=== PATIENT | female | born 1970 | race Caucasian/White ===

== ENCOUNTER 2024-04-18 12:43 | Outpatient (AMB) | payer OTHER, SELFPAY ==
--- NOTE | 2024-04-18 12:46 | A.OFFVIS_ITS ---
Vital Signs 04/18/24 12:50 Height 5 ft 7 in Weight 304 lb 3.806 oz BMI 47.6 BP 106/74 Blood Pressure Location Rt brachial Position Sitting Pulse 72 Pulse Source Pulse Oximeter Intake Visit Reasons: Obesity management Intake Note: NEW Patient presents today to establish treatment Obesity Management: Development Technician Required: No Accompanied by: Self / Same As Patient Allergies erythromycin base Adverse Reaction (Unknown, Verified 04/18/24 12:49) Vomiting sulfamethoxazole [From Bactrim] Adverse Reaction (Unknown, Verified 04/18/24 12:49) skin peeling trimethoprim [From Bactrim] Adverse Reaction (Unknown, Verified 04/18/24 12:49) skin peeling Medication List - Last Reconciled 04/18/24 by Eleazar Downey MD cholecalciferol (vitamin D3) 50 mcg PO DAILY diclofenac sodium mg PO fexofenadine (Josiane Allergy) 180 mg PO DAILY levothyroxine 200 mcg PO DAILY omeprazole 40 mg PO DAILY HPI Comments Details: This is a 53-year-old female referred to endocrinology for evaluation of obesity . Patient states weight gain of happened gradually lbs had occurred over many yrs Lost 30 lbs during Covid . Patient has tried diets of weight watchers and fad diets . Patient has seen a rattle leak and squeak repairer yrs ago . Saw Dr. Ascencio Patient has not tried weight loss medications of . Her primary care provider prescribed Wegovy but was denied . There is a history of hypothyroidism the patient is currently being treated by her primary care provider with levothyroxine 200 mcg. TSH was checked in January 2024 and was within normal limits. There were no symptoms of Boris syndrome., Granfather and uncle had Type 2 DM . Snores at night but does not have a known history of sleep apnea No history of pancreatitis or family history of medullary cancer of the thyroid or MEN 2 [facility] Medical History (Updated 04/18/24 @ 13:15 by BEATRIZ Mckeon) Rosacea Low serum vitamin D History of herniated intervertebral disc Allergic rhinitis Hypothyroid Mixed hyperlipidemia Loud snoring Restless leg Hepatic steatosis Obesity Surgical History (Updated 04/13/24 @ 11:46 by BEATRIZ Scruggs) Hx of section History of surgery History of partial hysterectomy History of colonoscopy Family History (Updated 04/13/24 @ 11:48 by BEATRIZ Scruggs) Mother History of hypertension Father Alcoholism Lung cancer Social History (Updated 04/13/24 @ 11:47 by BEATRIZ Scruggs) Alcohol intake: current Alcohol intake frequency: a few times a month Patient Tobacco Use Status: Never used Tobacco Physical Exam Vital Signs: Last Vital Signs Pulse 72 04/18/24 12:50 BP 106/74 04/18/24 12:50 BMI result Body Mass Index 47.6 Const Other: There was no cushingoid appearance. Thyroid gland is normal size weighs about 15 g. There are no thyroid nodules palpated Assessment & Plan Assessment & Plan (1) Obesity: Code(s): E66.9 - Obesity, unspecified Category: Medical Plan: This 53-year-old white female with a history of obesity. There were no clear secondary causes. Appears to be clinically and biochemically euthyroid. Plan is to send the patient to rattle leak and squeak repairer. We will talk about potentially initiating G LP 1 weight loss medication including the use of Wegovy or Zepbound if this is covered by patient's insurance. After careful discussion with the patient we decided to start Zepbound 2.5 mg Q weekly. Went over side effects of Zepbound including but not limited to nausea, vomiting and rare risk of pancreatitis Orders: Referrals Nutrition/Dietitian Referral E66.9 - Obesity, unspecified Medications: New tirzepatide (weight loss) (Zepbound) for 4 weeks 2.5 mg (0.5 mL) subcut QWEEK 2 mL 4RF Coding Level of Care Code New Pt Level 4 (42587) Diagnoses Obesity E66.9
[2024-04-18 12:50] VITALS: BP 106/74; PULSE 72; BMI 47.6
== END 2024-04-18 13:47 | disposition home or self-care (01) ==
PROVIDERS: PCP Internal Medicine; Visit Provider Internal Medicine Endocrinology, Diabetes & Metabolism
DX: E66.9 Obesity, unspecified (principal)
CPT/HCPCS: 99204

== ENCOUNTER → 2024-04-18 12:43 | Outpatient (BNVA) | payer OTHER, SELFPAY | PROVIDERS: PCP Internal Medicine; Visit Provider Internal Medicine Endocrinology, Diabetes & Metabolism ==

== ENCOUNTER 2024-05-17 13:52 | Outpatient (AMB) | payer OTHER, SELFPAY ==
--- NOTE | 2024-05-17 14:02 | A.OFFVIS_ITS ---
VS Expanded 05/17/24 14:14 05/24/24 20:55 Height 5 ft 7 in 5 ft 7 in Weight 296 lb 15.402 oz 297 lb BMI 46.5 46.5 Intake Visit Reasons: Obesity Allergies erythromycin base Adverse Reaction (Unknown, Verified 04/18/24 12:49) Vomiting sulfamethoxazole [From Bactrim] Adverse Reaction (Unknown, Verified 04/18/24 12:49) skin peeling trimethoprim [From Bactrim] Adverse Reaction (Unknown, Verified 04/18/24 12:49) skin peeling Nutrition Presentation Details: Pt presents for MNT obesity Food frequency fruits: 0-1/d vex/wk starches> 25 serving/d dairy: 3+serving/d prot: fish- not including beverages: water, milk,soups, juices physical activity: ADL etoh/smoking:denies BS Monitoring Most Recent Diabetes Results: No Data to Display ERY-Puurqmc-Nv.Jeor Equation Height: 5 ft 7 in Weight: 297 lb Resting Metabolic Rate: 1982.77 Calculated Activity Level: Sedentary Calories Needed to Maintain Weight: 2379.32 Diagnosis Nutrition problem #1: food nutri know defi As related to (etiology) #1: diagnosis As evidenced by (sign/symptom) #1: food recall and high BMI (46.5 on 05/17/24) Monitoring/Goals Nutrition problem monitoring: level of knowledge/skill, total CHO intake and weight Nutrition goal/outcome: wt loss 5lbs in 2 months [facility] Medical History Rosacea Low serum vitamin D History of herniated intervertebral disc Allergic rhinitis Hypothyroid Mixed hyperlipidemia Loud snoring Restless leg Hepatic steatosis Obesity Surgical History Hx of section History of surgery History of partial hysterectomy History of colonoscopy Family History Mother History of hypertension Father Alcoholism Lung cancer Social History Alcohol intake: current Alcohol intake frequency: a few times a month Patient Tobacco Use Status: Never used Tobacco Assessment & Plan Assessment & Plan (1) Obesity: Code(s): E66.9 - Obesity, unspecified Category: Medical Plan: Wt: 135 Kg ( 05/24 ) Est kcal needs as per MSJ: 2400 (40% carb, 30% protein/fat) Est fluid needs as per 25-30 ml/d: 4100 Est prot per day as per 1 g/kg bw: 135 Recommend fiber intake : 8-10 g per day and gradually increase to 25-28 g per day for women and 35-38 g for men or as tolerated Recommend sodium intake per day : l less than 2000 mg Educated patient on: ( R = reviewed V = verbalizes understanding N/R = needs review N/A = not applicable * Food sources of carbohydrate, adequate serving sizes and its role in various health conditions: R V N/R * Differences between complex carbohydrates a simple carbohydrates, role of fiber in diet: R * Lean protein sources of foods: R * Differences between types of fats and role in diet (mono on saturated fat fatty acids, saturated fatty acids, trans fats): R V N/R * Food sources of sodium in salt and healthy modifications for heart health in kidney health: R V R/V * Vitamins and minerals: R V N/R * Healthy plate method concept: R V N/R * Physical activity: Benefits a precaution: R V N/R * Medications: Discontinued tirzepatide (weight loss) (Zepbound) for 4 weeks Discontinued Reason: Doctor's Order 2.5 mg (0.5 mL) subcut QWEEK 2 mL 4RF Patient Instructions: Practice mindful eating Choose fiber rich foods, nutrient dense foods (reducing simple carbs) Keep hydrated by having water with meals/snacks Coding Level of Care Code Nutr Indiv Intake (61574) Diagnoses Obesity E66.9 Time Spent (min) 30
[2024-05-17 14:14] VITALS: BMI 46.5
[2024-05-24 20:55] VITALS: BMI 46.5
== END 2024-05-17 14:43 | disposition home or self-care (01) ==
PROVIDERS: PCP Internal Medicine; Visit Provider Dietitian, Registered
DX: E66.9 Obesity, unspecified (principal)

== ENCOUNTER → 2024-05-17 13:52 | Outpatient (BNVA) | payer OTHER, SELFPAY | PROVIDERS: PCP Internal Medicine; Visit Provider Dietitian, Registered | DX: E66.9 Obesity, unspecified (principal); Z68.42 Body mass index [BMI] 45.0-49.9, adult; Z71.3 Dietary counseling and surveillance | CPT/HCPCS: 97802 ==

== ENCOUNTER → 2024-05-31 15:20 | Outpatient (BNVA) | payer OTHER, SELFPAY | PROVIDERS: PCP Internal Medicine | DX: Z76.89 Persons encountering health services in other specified circumstances (principal) ==

== ENCOUNTER 2024-07-19 13:52 | Outpatient (AMB) | payer OTHER, SELFPAY ==
--- NOTE | 2024-07-19 13:57 | A.OFFVIS_ITS ---
Vital Signs 07/19/24 13:59 Height 5 ft 7 in Weight 290 lb 12.635 oz BMI 45.5 BP 112/76 Blood Pressure Location Rt brachial Position Sitting Pulse 84 Pulse Source Pulse Oximeter Pulse Oximetry (%) 98 Oxygen Delivery Method Room Air Intake Visit Reasons: obesity Intake Note: Patient present today for Obesity follow up. Bench Precision Assembler Required: No Accompanied by: Self / Same As Patient Allergies erythromycin base Adverse Reaction (Unknown, Verified 07/19/24 14:00) Vomiting sulfamethoxazole [From Bactrim] Adverse Reaction (Unknown, Verified 07/19/24 14:00) skin peeling trimethoprim [From Bactrim] Adverse Reaction (Unknown, Verified 07/19/24 14:00) skin peeling Medication List - Last Reconciled 07/19/24 by Eleazar Downey MD cholecalciferol (vitamin D3) 50 mcg PO DAILY diclofenac sodium mg PO fexofenadine (Josiane Allergy) 180 mg PO DAILY levothyroxine 200 mcg PO DAILY omeprazole 40 mg PO DAILY tirzepatide (weight loss) (Zepbound) 5 mg (0.5 mL) subcut QWEEK HPI Comments Details: This is a 53-year-old female referred to endocrinology for evaluation of obesity . Patient states weight gain of happened gradually lbs had occurred over many yrs Lost 30 lbs during Covid . Patient has tried diets of weight watchers and fad diets . Patient has seen a marksmanship instructor yrs ago . Saw Dr. Ascencio Patient has not tried weight loss medications of . Her primary care provider prescribed Wegovy but was denied . There is a history of hypothyroidism the patient is currently being treated by her primary care provider with levothyroxine 200 mcg. TSH was checked in January 2024 and was within normal limits. There were no symptoms of Fithian syndrome., Granfather and uncle had Type 2 DM . Snores at night but does not have a known history of sleep apnea No history of pancreatitis or family history of medullary cancer of the thyroid or MEN 2 Currently on Zepbound 5 mg Q weekly The patient is a 54-year-old female presenting with a follow-up for obesity management. Her treatment plan includes semaglutide (Zepbound), and she has been on 5 mg since May 31. Her initial weight at the first visit was 304 pounds, and it has reduced to 290 pounds. The patient indicates she has been tolerating the medication well but has noticed the effectiveness in appetite suppression waning in the past two weeks. Despite this, she reports continued weight loss. The patient expressed an interest in increasing her semaglutide dosage to 7.5 mg to enhance the medication?s efficacy. She experiences mild, intermittent nausea but no other significant side effects such as sulfur burps. Constipation is a noted side effect she is managing. The patient is actively engaging in a comprehensive platform for weight management, including consultations with an shoe folder, marksmanship instructor, nurse practitioner Mohini Zavala, and exercise routines. Specifics regarding her exercise regimen were not detailed. [facility] Medical History Rosacea Low serum vitamin D History of herniated intervertebral disc Allergic rhinitis Hypothyroid Mixed hyperlipidemia Loud snoring Restless leg Hepatic steatosis Obesity Surgical History Hx of section History of surgery History of partial hysterectomy History of colonoscopy Family History Mother History of hypertension Father Alcoholism Lung cancer Social History Alcohol intake: current Alcohol intake frequency: a few times a month Patient Tobacco Use Status: Never used Tobacco Physical Exam Vital Signs: BMI result Body Mass Index 45.5 Assessment & Plan Assessment & Plan (1) Obesity: Code(s): E66.9 - Obesity, unspecified Category: Medical Plan: This 53-year-old white female with a history of obesity. There were no clear secondary causes. Appears to be clinically and biochemically euthyroid. 1. Obesity The patient has lost weight on semaglutide 5 mg but reports increased appetite recently. We plan to increase the dosage to 7.5 mg, subject to insurance approval, to enhance appetite management and weight reduction. 2. Constipation The patient is experiencing manageable constipation from medication. Ongoing monitoring and management strategies will be enough unless symptoms worsen. During the consultation, we discussed the management of obesity with Zepbound , focusing on increasing the dose from 5 mg to 7.5 mg following a noted increase in appetite despite weight loss. The patient acknowledged the necessity to secure insurance approval for the new dosage. She was informed about the possibility of improved weight control at the higher dose but also advised of potential side effects, such as exacerbation of constipation and nausea. Constipation management strategies were also reviewed. Follow-up with her nurse practitioner in four weeks is encouraged to evaluate the effectiveness and tolerability of the increased dose, with additional weight management strategies to be explored if needed. - Continue taking your current medications as prescribed. - If insurance permits, start the increased dose of Zepbound as discussed. - Monitor for any side effects like increased nausea or constipation. - Maintain your exercise routine and dietary management as detailed in your comprehensive obesity program. - Attend all scheduled follow-up appointments with healthcare providers. - Report any concerning symptoms or side effects promptly. The patient had an opportunity to ask questions regarding treatment plan. The patient expressed understanding and agreement with the above treatment plan. Patient was informed and verbally consented to the use of an ambient scribe for clinic note documentation during this visit. Medications: New tirzepatide (weight loss) (Zepbound) 7.5 mg (0.5 mL) subcut QWEEK 2 mL 4RF Discontinued tirzepatide (weight loss) (Zepbound) Discontinued Reason: Doctor's Order 5 mg (0.5 mL) subcut QWEEK 2 mL 5RF Coding Level of Care Code Est Pt Level 3 (86729) Diagnoses Obesity E66.9
[2024-07-19 13:59] VITALS: BP 112/76; PULSE 84; O2SAT 98; BMI 45.5
== END 2024-07-19 14:14 | disposition home or self-care (01) ==
LOC: HO.ENCR 13:53
PROVIDERS: PCP Internal Medicine; Visit Provider Internal Medicine Endocrinology, Diabetes & Metabolism
DX: E66.9 Obesity, unspecified (principal)
CPT/HCPCS: 99213

== ENCOUNTER → 2024-07-19 13:52 | Outpatient (BNVA) | payer OTHER, SELFPAY | PROVIDERS: PCP Internal Medicine; Visit Provider Internal Medicine Endocrinology, Diabetes & Metabolism ==

== ENCOUNTER 2024-07-20 13:52 | Outpatient (AMB) | payer OTHER, SELFPAY ==
--- NOTE | 2024-07-20 14:01 | MHC.AMNUTRGE ---
VS Expanded 07/20/24 14:02 07/20/24 14:29 Height 5 ft 7 in 5 ft 7 in Weight 290 lb 11.5 oz 291 lb BMI 45.5 45.6 Intake Visit Reasons: Obesity Allergies erythromycin base Adverse Reaction (Unknown, Verified 07/19/24 14:00) Vomiting sulfamethoxazole [From Bactrim] Adverse Reaction (Unknown, Verified 07/19/24 14:00) skin peeling trimethoprim [From Bactrim] Adverse Reaction (Unknown, Verified 07/19/24 14:00) skin peeling Nutrition Presentation Details: Pt presents for MNT for obesity. Pt reports having 3 meals/day , counting calories, and trying to reduce calories to 1500 per day, 70 g of protein/day Reports having symptoms of constipation and is trying Metamucil once every other day and has been useful Reports incorporating physical activity , walking 1-2 miles by doing video walk away the pounds , reports often feeling too tired after the walk reports, lately having restless sleep fluids : 40 oz/day protein : 70 g/day from foods, not supplements fruits 0-1/d beans - not including fish 2 x/wk BS Monitoring Most Recent Diabetes Results: No Data to Display HOV-Bvbjide-Ba.Jeor Equation Height: 5 ft 7 in Weight: 291 lb Resting Metabolic Rate: 1955.58 Calculated Activity Level: Sedentary Calories Needed to Maintain Weight: 2346.70 [facility] Medical History Rosacea Low serum vitamin D History of herniated intervertebral disc Allergic rhinitis Hypothyroid Mixed hyperlipidemia Loud snoring Restless leg Hepatic steatosis Obesity Surgical History Hx of section History of surgery History of partial hysterectomy History of colonoscopy Family History Mother History of hypertension Father Alcoholism Lung cancer Social History Alcohol intake: current Alcohol intake frequency: a few times a month Patient Tobacco Use Status: Never used Tobacco Assessment & Plan Assessment & Plan (1) Obesity: Code(s): E66.9 - Obesity, unspecified Category: Medical Plan: Wt: 135 Kg ( 05/24 ), 132 kg (07/22) Est kcal needs as per MSJ: 2300- 500 eli = 1800/1900 (40% carb, 30% protein/fat) Est fluid needs as per 25-30 ml/d: 4000 (16 cups fluids/d) Est prot per day as per 1 g/kg bw: 130 Recommend fiber intake : 8-10 g per day and gradually increase to 25-28 g per day for women and 35-38 g for men or as tolerated Recommend sodium intake per day : l less than 2000 mg Educated patient on: ( R = reviewed V = verbalizes understanding N/R = needs review N/A = not applicable Food sources of carbohydrate, adequate serving sizes and its role in various health conditions: R V N/R Differences between complex carbohydrates a simple carbohydrates, role of fiber in diet: R Lean protein sources of foods: R Differences between types of fats and role in diet (mono on saturated fat fatty acids, saturated fatty acids, trans fats): R V N/R Food sources of sodium in salt and healthy modifications for heart health in kidney health: R V R/V Vitamins and minerals: R V N/R Healthy plate method concept: R V N/R Physical activity/hydration/nutrition : Benefits a precaution: R Patient Instructions: Do not over restrict calories, work on gradual diet modifications, Recommend consuming 3487-5797 calories per day, including a variety of food including high fiber foods (fruits/legumes/oats, protein from milk, beef, beans), keep hydrated (remember that fruits, veg, milk also have water in them) Continue with walking exercises in a steady/consistent manner Next topic : fats/hidden fats Coding Level of Care Code Nutr Indiv Subseq (83943) Diagnoses Obesity E66.9 Time Spent (min) 30
[2024-07-20 14:02] VITALS: BMI 45.5
[2024-07-20 14:29] VITALS: BMI 45.6
== END 2024-07-20 14:43 | disposition home or self-care (01) ==
LOC: HO.ENCR 13:53
PROVIDERS: PCP Internal Medicine; Visit Provider Dietitian, Registered
DX: E66.9 Obesity, unspecified (principal)

== ENCOUNTER → 2024-07-20 13:52 | Outpatient (BNVA) | payer OTHER, SELFPAY | PROVIDERS: PCP Internal Medicine; Visit Provider Dietitian, Registered | DX: E66.9 Obesity, unspecified (principal); Z68.42 Body mass index [BMI] 45.0-49.9, adult; Z71.3 Dietary counseling and surveillance | CPT/HCPCS: 97803 ==

== ENCOUNTER 2024-08-16 15:45 | Outpatient (AMB) | payer OTHER, SELFPAY ==
[2024-08-16 15:58] VITALS: BP 106/70; PULSE 88; O2SAT 98; BMI 44.5
--- NOTE | 2024-08-16 15:58 | A.OFFVIS_ITS ---
Vital Signs 08/16/24 15:58 Height 5 ft 7 in Weight 284 lb 6.341 oz BMI 44.5 BP 106/70 Blood Pressure Location Rt brachial Position Sitting Pulse 88 Pulse Source Pulse Oximeter Pulse Oximetry (%) 98 Oxygen Delivery Method Room Air Intake Visit Reasons: Obesity Intake Note: Patient present today for Obesity follow up. Screen Tender Helper Required: No Accompanied by: Self / Same As Patient Allergies erythromycin base Adverse Reaction (Unknown, Verified 08/16/24 15:59) Vomiting sulfamethoxazole [From Bactrim] Adverse Reaction (Unknown, Verified 08/16/24 15:59) skin peeling trimethoprim [From Bactrim] Adverse Reaction (Unknown, Verified 08/16/24 15:59) skin peeling Medication List - Last Reconciled 08/16/24 by Eleazar Downey MD cholecalciferol (vitamin D3) 50 mcg PO DAILY diclofenac sodium mg PO fexofenadine (Josiane Allergy) 180 mg PO DAILY levothyroxine 200 mcg PO DAILY omeprazole 40 mg PO DAILY tirzepatide (weight loss) (Zepbound) 7.5 mg (0.5 mL) subcut QWEEK HPI Comments Details: This is a 54-year-old female referred to endocrinology for evaluation of obesity . Patient states weight gain of happened gradually lbs had occurred over many yrs Lost 30 lbs during Covid . Patient has tried diets of weight watchers and fad diets . Patient has seen a decorating machine operator yrs ago . Saw Dr. Ascencio Patient has not tried weight loss medications of . Her primary care provider prescribed Wegovy but was denied . There is a history of hypothyroidism the patient is currently being treated by her primary care provider with levothyroxine 200 mcg. TSH was checked in January 2024 and was within normal limits. There were no symptoms of Ambler syndrome., Granfather and uncle had Type 2 DM . Snores at night but does not have a known history of sleep apnea No history of pancreatitis or family history of medullary cancer of the thyroid or MEN 2 Currently on Zepbound 7.5 mg Q weekly The patient is a 54-year-old female presenting with concerns related to weight management and the effectiveness of current medications. She is currently on a 7.5 dose of weight loss medication, which has resulted in a 6 to 7-pound weight loss since last and reports no significant side effects except for constipation. The patient manages constipation with beta fiber, MiraLAX, and Mag07. In the context of her hypothyroidism, managed with levothyroxine, she wonders if her recent weight loss might require an adjustment in her thyroid medication. This aspect of her care is usually managed by her primary care provider. She expresses overall satisfaction with her current strategy but notes the possible need for future dosage adjustments based on her progress. The patient is actively engaging in a comprehensive platform for weight management, including consultations with an bobbin hauler, decorating machine operator, nurse practitioner Mohini Zavala, and exercise routines. Specifics regarding her exercise regimen were not detailed. [facility] Medical History Rosacea Low serum vitamin D History of herniated intervertebral disc Allergic rhinitis Hypothyroid Mixed hyperlipidemia Loud snoring Restless leg Hepatic steatosis Obesity Surgical History Hx of section History of surgery History of partial hysterectomy History of colonoscopy Family History Mother History of hypertension Father Alcoholism Lung cancer Social History Alcohol intake: current Alcohol intake frequency: a few times a month Patient Tobacco Use Status: Never used Tobacco Physical Exam Vital Signs: Last Vital Signs Pulse 88 08/16/24 15:58 BP 106/70 08/16/24 15:58 Pulse Ox 98 08/16/24 15:58 Oxygen Delivery Method Room Air 08/16/24 15:58 BMI result Body Mass Index 44.5 Assessment & Plan Assessment & Plan (1) Obesity: Code(s): E66.9 - Obesity, unspecified Category: Medical Plan: This 54-year-old white female with a history of obesity. There were no clear secondary causes. Appears to be clinically and biochemically euthyroid. - 1. Constipation associated with weight management medication Current management with fiber supplements and Mag07 to be continued with monitoring of symptoms. 2. Hypothyroidism Levothyroxine dosage should be re-evaluated during weight loss progress by PCP. 3. Obesity Current 7.5 mg dose of weight management medication is effective; continue monitoring weight and dietary adherence with decorating machine operator guidance. The patient had an opportunity to ask questions regarding treatment plan. The patient expressed understanding and agreement with the above treatment plan. Patient was informed and verbally consented to the use of an ambient scribe for clinic note documentation during this visit. The patient had an opportunity to ask questions regarding treatment plan. The patient expressed understanding and agreement with the above treatment plan. Patient was informed and verbally consented to the use of an ambient scribe for clinic note documentation during this visit. Coding Level of Care Code Est Pt Level 3 (09173) Diagnoses Obesity E66.9
== END 2024-08-16 16:12 | disposition home or self-care (01) ==
LOC: HO.ENCR 15:46
PROVIDERS: PCP Internal Medicine; Visit Provider Internal Medicine Endocrinology, Diabetes & Metabolism
DX: E66.9 Obesity, unspecified (principal)
CPT/HCPCS: 99213

== ENCOUNTER 2024-09-21 14:22 | Outpatient (AMB) | payer OTHER, SELFPAY ==
[2024-09-21 14:43] VITALS: BMI 43.2
--- NOTE | 2024-09-21 14:43 | A.OFFVIS_ITS ---
VS Expanded 09/21/24 14:43 10/04/24 20:26 Height 5 ft 7 in 5 ft 7 in Weight 275 lb 12.772 oz 276 lb BMI 43.2 43.2 Intake Visit Reasons: obesity Allergies erythromycin base Adverse Reaction (Unknown, Verified 08/16/24 15:59) Vomiting sulfamethoxazole (From Bactrim) Adverse Reaction (Unknown, Verified 08/16/24 15:59) skin peeling trimethoprim (From Bactrim) Adverse Reaction (Unknown, Verified 08/16/24 15:59) skin peeling Nutrition Presentation Details: Pt presents for MNT for obesity Pt reports working on eating slowly working on having 3 small meals per day and choosing fiber rich foods as snacks fluids: water, tea, low sugar beverages, 64 +/- 16 oz of fluids/d food frequency fruits: 0-1/d ve/d dairy : 1-2/d fish 0-1/wk physical activity: walking tape 30 minutes 3 x/wk OTE-Nkrndsv-Qh.Jeor Equation Height: 5 ft 7 in Weight: 276 lb Resting Metabolic Rate: 1887.61 Calculated Activity Level: Sedentary Calories Needed to Maintain Weight: 2265.13 PFSH Medical History Rosacea Low serum vitamin D History of herniated intervertebral disc Allergic rhinitis Hypothyroid Mixed hyperlipidemia Loud snoring Restless leg Hepatic steatosis Obesity Surgical History Hx of section History of surgery History of partial hysterectomy History of colonoscopy Family History Mother History of hypertension Father Alcoholism Lung cancer Social History Alcohol intake: current Alcohol intake frequency: a few times a month Patient Tobacco Use Status: Never used Tobacco Assessment & Plan Assessment & Plan (1) Obesity: Code(s): E66.9 - Obesity, unspecified Category: Medical Plan: Wt: 135 Kg ( 05/24 ), 132 kg (07/22), 125 kg (09/21) Est kcal needs as per MSJ: 2300- 500 eli = 1800/1900 (40% carb, 30% protein/fat) Est fluid needs as per 25-30 ml/d: 3800 (16 cups fluids/d) Est prot per day as per 1 g/kg bw: 125 Recommend fiber intake : 8-10 g per day and gradually increase to 25-28 g per day for women and 35-38 g for men or as tolerated Recommend sodium intake per day : l less than 2000 mg Educated patient on: ( R = reviewed V = verbalizes understanding N/R = needs review N/A = not applicable * Food sources of carbohydrate, adequate serving sizes and its role in various health conditions: R ,V * Differences between complex carbohydrates a simple carbohydrates, role of fiber in diet: R * Lean protein sources of foods: R * Differences between types of fats and role in diet (mono on saturated fat fatty acids, saturated fatty acids, trans fats): R * Food sources of sodium in salt and healthy modifications for heart health in kidney health: R * Vitamins and minerals: R * Healthy plate method concept: R V * Physical activity/hydration/nutrition : Benefits a precaution: R * Patient Instructions: Continue working on having 3-4 meals per day , choosing fiber rich foods, practicing mindful eating 30 g protein per meal (4 /day ) 45-60 g carb per meal , choosing fiber rich foods continue physical activity increase to 40 minutes 3 times a week or 30 minutes 4 times/wk Coding Level of Care Code Nutr Indiv Subseq (33833) Diagnoses Obesity E66.9 Time Spent (min) 30
[2024-10-04 20:26] VITALS: BMI 43.2
== END 2024-09-21 15:09 | disposition home or self-care (01) ==
LOC: HO.ENCR 14:23
PROVIDERS: PCP Internal Medicine; Visit Provider Dietitian, Registered
DX: E66.9 Obesity, unspecified (principal)

== ENCOUNTER → 2024-09-21 14:22 | Outpatient (BNVA) | payer OTHER, SELFPAY | PROVIDERS: PCP Internal Medicine; Visit Provider Dietitian, Registered | DX: Z71.3 Dietary counseling and surveillance (principal); E66.9 Obesity, unspecified | CPT/HCPCS: 97803 ==

== ENCOUNTER 2024-12-14 15:22 | Outpatient (AMB) | payer OTHER, SELFPAY ==
[2024-12-14 15:37] VITALS: BP 94/62; PULSE 82; O2SAT 97; BMI 41.7
--- NOTE | 2024-12-14 15:37 | A.OFFVIS_ITS ---
Vital Signs 12/14/24 15:37 Height 5 ft 7 in Weight 266 lb 8.622 oz BMI 41.7 BP 94/62 Blood Pressure Location Rt brachial Position Sitting Pulse 82 Pulse Source Pulse Oximeter Pulse Oximetry (%) 97 Oxygen Delivery Method Room Air Intake Visit Reasons: Obesity Intake Note: Patient present today for Obesity follow up. 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: No Accompanied by: Self / Same As Patient Allergies erythromycin base Adverse Reaction (Unknown, Verified 12/14/24 15:38) Vomiting sulfamethoxazole (From Bactrim) Adverse Reaction (Unknown, Verified 12/14/24 15:38) skin peeling trimethoprim (From Bactrim) Adverse Reaction (Unknown, Verified 12/14/24 15:38) skin peeling Medication List - Last Reconciled 12/14/24 by Eleazar Downey MD cholecalciferol (vitamin D3) 50 mcg PO DAILY diclofenac sodium mg PO fexofenadine (Josiane Allergy) 180 mg PO DAILY levothyroxine 200 mcg PO DAILY omeprazole 40 mg PO DAILY tirzepatide (weight loss) (Zepbound) 10 mg (0.5 mL) subcut QWEEK HPI Comments Details: This is a 54-year-old female referred to endocrinology for evaluation of obesity . Patient states weight gain of happened gradually lbs had occurred over many yrs Lost 30 lbs during Covid . Patient has tried diets of weight watchers and fad diets . Patient has seen a data entry machine operator yrs ago . Saw Dr. Ascencio Patient has not tried weight loss medications of . Her primary care provider prescribed Wegovy but was denied . There is a history of hypothyroidism the patient is currently being treated by her primary care provider with levothyroxine 200 mcg. TSH was checked in January 2024 and was within normal limits. There were no symptoms of [place] syndrome., Granfather and uncle had Type 2 DM . Snores at night but does not have a known history of sleep apnea No history of pancreatitis or family history of medullary cancer of the thyroid or MEN 2 Currently on Zepbound 10 mg Q weekly Lost additional 20 lbs [facility] Medical History Rosacea Low serum vitamin D History of herniated intervertebral disc Allergic rhinitis Hypothyroid Mixed hyperlipidemia Loud snoring Restless leg Hepatic steatosis Obesity Surgical History Hx of section History of surgery History of partial hysterectomy History of colonoscopy Family History Mother History of hypertension Father Alcoholism Lung cancer Social History Alcohol intake: current Alcohol intake frequency: a few times a month Patient Tobacco Use Status: Never used Tobacco Physical Exam Vital Signs: Last Vital Signs Pulse 82 12/14/24 15:37 BP 94/62 12/14/24 15:37 Pulse Ox 97 12/14/24 15:37 Oxygen Delivery Method Room Air 12/14/24 15:37 BMI result Body Mass Index 41.7 Assessment & Plan Assessment & Plan (1) Obesity: Code(s): E66.9 - Obesity, unspecified Category: Medical Plan: This 54-year-old white female with a history of obesity. There were no clear secondary causes. Appears to be clinically and biochemically euthyroid. Currently on Zepbound 10 mg tolerating well Plan is to continue the current management - Medications: Refilled tirzepatide (weight loss) (Zepbound) 10 mg (0.5 mL) subcut QWEEK 2 mL 5RF tirzepatide (weight loss) (Zepbound) 10 mg (0.5 mL) subcut QWEEK 2 mL 5RF Coding Level of Care Code Est Pt Level 3 (63577) Diagnoses Obesity E66.9
== END 2024-12-14 15:55 | disposition home or self-care (01) ==
LOC: HO.ENCR 15:22
PROVIDERS: PCP Internal Medicine; Visit Provider Internal Medicine Endocrinology, Diabetes & Metabolism
DX: E66.9 Obesity, unspecified (principal)
CPT/HCPCS: 99213

== ENCOUNTER 2025-02-16 15:40 | Outpatient (AMB) | payer OTHER, SELFPAY ==
--- OUTSIDE RECORDS SUMMARY | 2025-02-15 23:59 | XMS_ITS | Continuity of Care Document ---
Author Organization [facility] Address [address] [place] [address]- Care Team Providers Care Molder Meat Name Role Phone Santiago GERMAN, Leona Orourke Primary Care Physic jose [facility]counter [facility] [id number] Date(s): 02/08/25 - 02/15/25 [facility] [address] [place] [address]- Encounter Diagnosis Health care maintenance(Discharge Diagnosis) - 02/08/25 Mixed hyperlipidemia(Discharge Diagnosis) - 02/08/25 Severe obesity (BMI 35.0-39.9) with comorbidity(Discharge Diagnosis) - 02/08/25 Trochanteric bursitis, left hip(Discharge Diagnosis) - 02/08/25 Attending Physician: Santiago GERMAN, Leona Orourke Encounter Type: Office Visit Allergies, Adverse Reactions, Alerts Substance Criticality Severity Reaction Reaction Severity Status erythromycin vomitting Active Bactrim skin peelin off Acti ve Functional Status Functional Status Assessment Assessment Assessment Component Result Effecti ve Date Disability status [CUBS] I'm Thriving - no identified disability 02/08/25 Do you have difficul ty dressing or bathing No 02/08/25 Do you have serious difficulty walking or climbing stairs No 02/08/25 Do you need any august tional assistance or accommodations during your visit No 02/08/25 Because of a physica l, mental, or emotional condition, do you have serious difficulty concentrating, remembering, or making decisions No 02/08/25 Are you blind, or do you have serious difficulty seeing, even when wearing glasses No 02/08/25 Difficulty Reading O r Writing No 02/08/25 Are you deaf, or do you have serious difficulty hearing No 02/08/25 Difficulty communica ting in usual language No 02/08/25 Because of a physica l, mental, or emotional condition, do you have difficulty doing errands alone such as visiting a physician's office or shopping No 02/08/25 Immunizations Given and Recorded Vaccine Date Status Refusal Reason SARS-CoV-2 (COVID-19) mRNA-1273 vaccine 02/13/21 R ecorded SARS-CoV-2 (COVID-19) mRNA-1273 vaccine 05/02/20 R ecorded SARS-CoV-2 (COVID-19) mRNA-1273 vaccine 04/04/20 R ecorded influenza virus vaccine, inactivated 01/23/21 Sumanth rded influenza virus vaccine, inactivated 01/06/18 Sumanth rded influenza virus vaccine, inactivated 01/14/17 Sumanth rded influenza virus vaccine, inactivated 01/28/15 Sumanth rded influenza virus vaccine, inactivated 01/28/14 Sumanth rded influenza virus vaccine, inactivated 01/28/13 Sumanth rded tetanus/diphtheria/pertussis, acel(Tdap) 05/09/10 Recorded Medications diclofenac sodium 75 mg oral delayed release tablet 1 tablet, By Mouth, 2 times a day, # 180 tablet, 1 Refills, Maintenance, 12/05/24 12:22:00 PM EDT, [facility], 172, cm, 08/18/24 8:17:00 EDT, Height Start Date: 12/05/24 Status: Ordered Medication Dispense Status: Completed Quantity: 180.0 Unit: tablet Total Allowed Fills: 1 Fills Dispensed: 0 fluticasone 50 mcg/inh nasal spray See Instructions, INSTILL 2 SPRAYS INTO EACH NOSTRIL DAILY IN THE MORNING, # 16 Gm, 6 Refills, Maintenance, 05/26/24 9:52:00 AM EST, [facility], 30, INSTILL 2 SPRAYS INTO EACH NOSTRILDAILY IN THE MORNING, 172, cm, 02/26/24 8:23:00 EST, Height Start Date: 05/26/24 Status: Ordered Medication Dispense Status: Completed Quantity: 16.0 Unit: g Total Allowed Fills: 1 Fills Dispensed: 0 levothyroxine 0.2 mg oral tablet 1 tablet, By Mouth, Daily, # 90 tablet, 3 Refills, Maintenance, 04/14/24 8:11:00 AM EST, [facility], 172, cm, 02/26/24 8:23:00 EST, Height Start Date: 04/14/24 Status: Ordered Medication Dispense Status: Completed Quantity: 90.0 Unit: tablet Total Allowed Fills: 1 Fills Dispensed: 0 Wegovy (0.25 mg dose) subcutaneous solution = 0.25 mg, Subcutaneous Infusion, Every week, in the abdomen, thigh, or upper arm, # 4 each, 0 Refills, Maintenance, 02/26/24 10:34:00 AM EST, Partial fill upon patient request if the prescription isfor a schedule II opioid drug., 172, cm, 02/26/24 8:23:00 EST, Height Start Date: 02/26/24 Status: Ordered Medication Dispense Status: Completed Quantity: 4.0 Unit: each Total Allowed Fills: 1 Fills Dispensed: 0 Indications: Morbid (severe) obesity due to excess calories; Problem List Condition Confirmation Course Effective Dates Status H ealth Status Informant Allergic rhinitis Confirmed Active Low serum vitamin D Confirmed Active Trochanteric bursitis, left hip Confirmed Active S/P hysterectomy Confirmed Active History of herniated intervertebral disc Confirmed Active Hypothyroid Confirmed Active Schatzki's ring Confirmed Active Mixed hyperlipidemia Confirmed Active Health care maintenance Confirmed Active Restless legs Confirmed Active Rosacea Confirmed Active Severe obesity (BMI 35.0-39.9) with comorbidity Confirmed Active Loud snoring Confirmed Active Hepatic steatosis Confirmed Active Diagnosis Diagnosis Type Effective Dates Health Status Clinical Service Informant Health care maintenance Discharge Diagnosis 02/08/25 Mixed hyperlipidemia Discharge Diagnosis 02/08/25 Severe obesity (BMI 35.0-39.9) with comorbidity Discharge Diagnosis 02/08/25 Trochanteric bursitis, left hip Discharge Diagnosis 02/08/25 Vital Signs Most recent to oldest [Reference Range]: 1 Height 172 cm (02/08/25 8:57 AM) Weight 115.7 kg (02/08/25 8:57 AM) Oxygen Saturation [94-100 %] 100 % (02/08/25 8:57 AM) Pulse Rate [55-90 bpm] 68 bpm (02/08/25 8:57 AM) Body Mass Index [18.5-24.99 kg/m2] 39.11 kg/m2 *H* (02/08/25 8:57 AM) Blood Pressure [90-138/55-84 mm Hg] 116/ 76mm Hg (02/08/25 8:57 AM) Mode of Delivery (Oxygen) Room air (02/08/25 8:57 AM) Blood pressure sites Arm, left (02/08/25 8:57 AM) Weight Obtained Via Standing scale (02/08/25 8:57 AM) Social History Social History Type Response Sexual Sexually involved in last 6 months: No. Smoking Status Never (less than 100 in lifetime) entered on: 05/03/18 Sex Sex Representation Female (finding) Patient Care team information Care Team Personnel Name: Santiago GERMAN, Leona Orourke Position: [facility] Physician - Primary Care Member Role: PCP Address: [address] [place] [address] Telecom: Care Team Related Persons Name: ETHAN MCCLAIN Name: FLOYD LOPEZ Name: NASIM PALACIOS Name: SAMUEL ESTRADA Name: NORRIS CHAUDHARI Insurance Providers Guarantor name: YASBEL ESTRADA Health Plan Information #: 1 Payer: [employer] [facility] PPO Payer Identifier: LAUREN Member Number: [id number] Group Number: [id number] Subscriber Identifier: [id number] Relationship to Subscriber: self Coverage Type: Other Private Insurance Coverage Verification Date: NA Telecom: LAUREN Address:
[2025-02-16 15:43] VITALS: BP 110/72; PULSE 84; O2SAT 96; BMI 40.0
--- NOTE | 2025-02-16 15:43 | MHC.OFFVIS ---
Vital Signs 02/16/25 15:43 Height 5 ft 7 in Weight 255 lb 11.779 oz BMI 40.0 BP 110/72 Blood Pressure Location Lt brachial Position Sitting Pulse 84 Pulse Source Pulse Oximeter Pulse Oximetry (%) 96 Oxygen Delivery Method Room Air Intake Visit Reasons: Obesity Intake Note: Patient present today for Obesity follow up. 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 Required: No Accompanied by: Self / Same As Patient Allergies erythromycin base Adverse Reaction (Unknown, Verified 02/16/25 15:47) Vomiting sulfamethoxazole (From Bactrim) Adverse Reaction (Unknown, Verified 02/16/25 15:47) skin peeling trimethoprim (From Bactrim) Adverse Reaction (Unknown, Verified 02/16/25 15:47) skin peeling Medication List - Last Reconciled 02/16/25 by Eleazar Downey MD cholecalciferol (vitamin D3) 50 mcg PO DAILY diclofenac sodium mg PO fexofenadine (Josiane Allergy) 180 mg PO DAILY levothyroxine 200 mcg PO DAILY omeprazole 40 mg PO DAILY tirzepatide (weight loss) (Zepbound) 12.5 mg (0.5 mL) subcut QWEEK HPI Comments Details: This is a 54-year-old female referred to endocrinology for evaluation of obesity . Patient states weight gain of happened gradually lbs had occurred over many yrs Lost 30 lbs during Covid . Patient has tried diets of weight watchers and fad diets . 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 Saw Dr. Ascencio Patient has not tried weight loss medications of . Her primary care provider prescribed Wegovy but was denied . There is a history of hypothyroidism the patient is currently being treated by her primary care provider with levothyroxine 200 mcg. TSH was checked in January 2024 and was within normal limits. There were no symptoms of [place] syndrome., Granfather and uncle had Type 2 DM . Snores at night but does not have a known history of sleep apnea No history of pancreatitis or family history of medullary cancer of the thyroid or MEN 2 Currently on Zepbound 12.5 mg Q weekly Lost additional 10 lbs [facility] Medical History Rosacea Low serum vitamin D History of herniated intervertebral disc Allergic rhinitis Hypothyroid Mixed hyperlipidemia Loud snoring Restless leg Hepatic steatosis Obesity Surgical History Hx of section History of surgery History of partial hysterectomy History of colonoscopy Family History Mother History of hypertension Father Alcoholism Lung cancer Social History Alcohol intake: current Alcohol intake frequency: a few times a month Patient Tobacco Use Status: Never used Tobacco Physical Exam Vital Signs: Last Vital Signs Pulse 84 02/16/25 15:43 BP 110/72 02/16/25 15:43 Pulse Ox 96 02/16/25 15:43 Oxygen Delivery Method Room Air 02/16/25 15:43 BMI result Body Mass Index 40.0 Assessment & Plan Assessment & Plan (1) Obesity: Code(s): E66.9 - Obesity, unspecified Category: Medical Plan: This 54-year-old white female with a history of obesity. There were no clear secondary causes. Appears to be clinically and biochemically euthyroid. Currently on Zepbound 12.5 mg tolerating well Plan is to continue the current management. Unfortunately, patient insurance may not cover this Zepbound as of 03/2025. If this is case, patient may convert to [employer] pay and will let us know - Coding Level of Care Code Est Pt Level 3 (83503) Diagnoses Obesity E66.9
== END 2025-02-16 16:01 | disposition home or self-care (01) ==
LOC: HO.ENCR 15:41
PROVIDERS: PCP Internal Medicine; Visit Provider Internal Medicine Endocrinology, Diabetes & Metabolism
DX: E66.9 Obesity, unspecified (principal)
CPT/HCPCS: 99213